=== PATIENT | female | born 1955 | race Caucasian/White ===

== ENCOUNTER → 2019-06-24 | Outpatient (CLI) | payer MEDICARE ==
--- NOTE | 2019-06-24 23:02 | Diagnostic Imaging Report ---
Exam: Bone mineral density study. History: Osteopenia Comparison: None available. Discussion: Evaluation of the left hip and lumbar spine was performed. The study is technically adequate. The patient's fracture risk is compared to an age-matched control. The patient denies prior surgery/fracture of the spine, hips or forearm. Left hip femoral neck bone mineral density: 0.8 g/cm2, T-score is -0.6, Z-score is 0.8. Left hip total bone mineral density: 0.9 g/cm2, T-score is -0.3, Z-score is 0.8. Lumbar spine total bone mineral density: 1.2 g/cm2, T-score is 1.4, Z-score is 2.9. Impression: Bone mineralization by WHO Classification is normal, the fracture risk is not increased. Signed by: Dr. John Chamberlain D.O., M.M.M. on 06/24/2019 10:58 PM
--- NOTE | 2019-06-30 08:34 | Diagnostic Imaging Report ---
#[id number] - MGSCRBIL #BILATERAL DIGITAL SCREENING MAMMOGRAM WITH CAD: 06/24/2019 CLINICAL: Routine screening. Comparison is made to exams dated: 06/29/2016 mammogram, 04/15/2015 mammogram and 05/06/2013 mammogram - [facility]. Current study contains 4 films. The tissue of both breasts is heterogeneously dense. This may lower the sensitivity of mammography. Current study was also evaluated with a Computer Aided Detection (CAD) system. Benign appearing calcifications are noted bilaterally. No significant masses, calcifications, or other findings are seen in either breast. IMPRESSION: BENIGN There is no mammographic evidence of malignancy. A 1 year screening mammogram is recommended. The patient will be notified by letter of the results. OSBALDO MORALES M.D. ct/penrad:06/27/2019 10:05:26 Senior Cost Accountant: Sarika RAMOS(Yogesh)(M), [facility] letter sent: Normal Exam Mammogram BI-RADS: 2 Benign
== END ==
LOC: MAMMO 10:18
PROVIDERS: ATTEND Internal Medicine
DX: Z12.31 Encounter for screening mammogram for malignant neoplasm of breast (principal); M81.0 Age-related osteoporosis without current pathological fracture
CPT/HCPCS: 77067; 77080